=== PATIENT | male | born 1990 | race African-American/Black ===

== ENCOUNTER 2024-04-29 07:53 | Emergency (ER) | payer OTHER ==
[2024-04-29] MEDS ORDERED: Lidocaine 2% 5 ML SDV INFILT ONE (07:54)
[2024-04-29] MEDS: Diphtheria,Pertussis(Acell),Tetanus Vaccine 0.5 ML Syringe IM ONE (08:35)
== END 2024-04-29 08:48 | disposition home or self-care (01) ==
LOC: FB.ED 07:53
DX: S01.411A Laceration without foreign body of right cheek and temporomandibular area, initial encounter (principal); Z23 Encounter for immunization; W22.8XXA Striking against or struck by other objects, initial encounter
CPT/HCPCS: 12011; 90471; 90715; 99282-25

== ENCOUNTER 2025-05-06 13:06 | Emergency (ER) | payer BC, OTHER | END 2025-05-06 13:45 | disposition home or self-care (01) | LOC: FB.ED 13:06 | DX: S05.02XA Injury of conjunctiva and corneal abrasion without foreign body, left eye, initial encounter (principal); X58.XXXA Exposure to other specified factors, initial encounter | CPT/HCPCS: 99283 ==